=== PATIENT | female | born 1970 | race Asian ===

== ENCOUNTER 2018-04-21 12:04 | Emergency (ER) | payer OTHER ==
[~2018-04-21] VITALS: Ht 147.3 cm; Wt 49.9 kg
[2018-04-21] MEDS ORDERED: ONDANSETRON 4 MG/2 ML VIAL ONE (12:14)
[2018-04-21] MEDS ORDERED: HYDROMORPHONE 2 MG/1 ML DISP.SYRIN ONE (12:24)
--- NOTE | 2018-04-21 12:25 | NUR ---
PT IS IN ROOM #2A. DR CLAYTON EVALUATED THE PT.
[2018-04-21] MEDS ORDERED: IV NORMAL SALINE 1000 ML BAG IV ONE (12:30)
[2018-04-21] MEDS ORDERED: HYDROMORPHONE 1 MG/1 ML DISP.SYRIN IV ONE (12:30)
[2018-04-21] MEDS ORDERED: ONDANSETRON 4 MG/2 ML VIAL IV ONE (12:30)
[2018-04-21 12:34] LABS: BASOPHILS # (AUTO) 0.1 K/uL (0.0-8.0); BASOPHILS % (AUTO) 0.9 % (0.0-2.0); EOSINOPHILS # (AUTO) 0.1 K/uL (0.0-0.7); EOSINOPHILS % (AUTO) 1.9 % (0.0-7.0); HEMATOCRIT 39.3 % (31.2-41.9); LYMPHOCYTES # (AUTO) 1.6 K/uL (20.0-40.0); LYMPHOCYTES % (AUTO) 21.2 % (20.5-51.5); MEAN CORPUSCULAR HEMOGLOBIN 30.8 uug (24.7-32.8); MEAN CORPUSCULAR HGB CONC 33 g/dL (32.3-35.6); MONOCYTES # (AUTO) 0.4 K/uL (2.0-10.0); MONOCYTES % (AUTO) 5.3 % (0.0-11.0); NEUTROPHILS # (AUTO) 5.4 K/uL (1.8-8.9); NEUTROPHILS % (AUTO) 70.7 % (38.5-71.5); PLATELET COUNT (AUTO) 393 K/uL (179-408); RED BLOOD CELL COUNT(AUTO) 4.23 MIL/uL (3.63-4.92); WHITE BLOOD COUNT (AUTO) 7.6 K/uL (3.8-11.8)
[2018-04-21 12:39] LABS: CREATININE 0.9 mg/dL (0.6-1.3); POTASSIUM 3.9 mmol/L (3.5-5.1)
--- NOTE | 2018-04-21 12:55 | NUR ---
Moderate sedation started, please see written moderate sedation record.
[2018-04-21] MEDS ORDERED: PROPOFOL 1,000 MG/100 ML BOTTLE IV ONE (13:00)
[2018-04-21] MEDS ORDERED: FENTANYL CITRATE 100 MCG/2 ML AMPUL IV ONE (13:00)
[2018-04-21] MEDS ORDERED: FENTANYL CITRATE 100 MCG/2 ML AMPUL ONE (13:01)
[2018-04-21] MEDS ORDERED: PROPOFOL 200 MG/20 ML BOTTLE ONE (13:02)
--- NOTE | 2018-04-21 13:25 | NUR ---
CLOSED REDUCTION OF THE RIGHT FRANCISCO WITH MODERATE SEDATION WAS PEFORMED BY DR CLAYTON. PT TOLERATED TO PROCEDURE WITHOUT COMPLICATIONS. PT IS FULLY AWAKE. CAN MOVE ALL FOUR EXTREMITIES AND SPEAK IN FUL SENTENCES. PT'S AT THE BEDSIDE. CONTINUE TO MONITOR THE PT.
--- NOTE | 2018-04-21 14:21 | NUR ---
PT WAS D/C'd TO HOME AFTER DR CLAYTON RE-EVALUATION. D/C INSTRUCTIONS GIVEN TO THE PT. CRUTCHES TRAINING WAS DONE. GAIT IS STABLE. PT DENIES PAIN. NO N/V. NO DIZINESS.
[2018-04-21 14:25] VITALS: BP 128/81
== END 2018-04-21 14:31 | disposition home or self-care (01) ==
LOC: ER 12:06
DX: S82.301A Unspecified fracture of lower end of right tibia, initial encounter for closed fracture (principal); S82.831A Other fracture of upper and lower end of right fibula, initial encounter for closed fracture; S93.04XA Dislocation of right ankle joint, initial encounter; X50.0XXA Overexertion from strenuous movement or load, initial encounter; Y93.89 Activity, other specified; Y92.89 Other specified places as the place of occurrence of the external cause; Y99.8 Other external cause status
CPT/HCPCS: 27840; 36415; 73590; 73600; 73610; 80048; 85025; 85730; 96374; 96375; 99285; J1170; J2405; J3010; A4663; J3490; J7030